=== PATIENT | female | born 1980 | race Caucasian/White ===

== ENCOUNTER → 2021-10-18 | Outpatient (CLI) | payer MEDICARE, OTHER ==
[2021-10-18 13:12] VITALS: BP 148/96; PULSE 74; RESP 18; TEMP 98.5
--- NOTE | 2021-10-18 13:40 | P.GSHP ---
History of Present Illness H&P Date: 10/18/21 Chief Complaint: abnormal mammogram left breast Cecily is a 41 year old white female seen in consultation for Dr. Patton regarding a left nipple inversion. Is been inverted for approximately 4 months. It is not painful. She has not noted any abnormal nipple discharge. She had a left breast ultrasound performed on 08-21-21 this revealed an ill-defined hypoechoic area in the retroareolar region. She subsequently had a bilateral mammogram performed on this again revealed in the subareolar area some asymmetric increased density. Additionally a 5 mm lesion was noted in the right breast. She subsequently underwent a right breast ultrasound and was told that a repeat right breast mammogram should be done in 6 months. The patient is not complaining of any lumps masses or nodules of concern in either breast. She does not have any abnormal nipple discharge. She is not complaining of any pain in her breast. She is not had any recent trauma or infection in her breast. This was her first mammogram. caffiene: occasional nicotine: none chocolate: occasional hormones: none Family History: cousin: lung smoker Hormonal History: menarche: 13 , breast fed: no, age at first :25 periods regular BCP: none Surgical Hstory: tubal right finger Medical History: asthma hypothyroid Social History: nicotine: none alcohol: none drugs: none - Constitutional Constitutional: Denies chills, Denies fever - EENT Eyes: denies blurred vision, denies pain Ears: deny: decreased hearing, tinnitus Ears, nose, mouth and throat: Denies headache, Denies sore throat - Breasts Breasts: bilateral: as per HPI - Cardiovascular Cardiovascular: Denies chest pain, Denies shortness of breath - Respiratory Respiratory: Denies cough, Denies 7 - Gastrointestinal Gastrointestinal: Denies abdominal pain, Denies diarrhea, Denies nausea, Denies vomiting - Genitourinary (Female) Genitourinary: Denies dysuria, Denies hematuria - Menstruation Menstruation: Reports period normal - Musculoskeletal Musculoskeletal: Denies myalgias - Integumentary Integumentary: Denies pruritus, Denies rash - Neurological Neurological: Denies numbness, Denies weakness - Psychiatric Psychiatric: Denies anxiety, Denies depression - Endocrine Endocrine: Denies fatigue, Denies weight change - Hematologic/Lymphatic Comment: none - Allergic/Immunologic Allergic/Immunologic: Reports as per HPI Past Medical History Past Medical History: Asthma History of Any Multi-Drug Resistant Organisms: None Reported Past Surgical History: Section, Tubal Ligation Additional Past Surgical History / Comment(s): RIGHT PINKY FINGER A CHILD Past Anesthesia/Blood Transfusion Reactions: No Reported Reaction Past Psychological History: No Psychological Hx Reported Smoking Status: Never smoker Past Alcohol Use History: None Reported Past Drug Use History: None Reported Medications and Allergies Home Medications Medication Instructions Recorded Confirmed Type Albuterol Sulfate [Ventolin HFA] 1 - 2 puff INHALATION Q6H PRN #1 03/28/14 10/18/21 Rx inhaler predniSONE 10 mg PO DIRECTED #24 tab 03/28/14 Rx Levothyroxine Sodium [Synthroid] 50 mcg PO DAILY 10/18/21 10/18/21 History Allergies Allergy/AdvReac Type Severity Reaction Status Date / Time No Known Allergies Allergy Verified 10/18/21 13:03 Surgical - Exam Vital Signs Temp Pulse Resp BP Pulse Ox 98.5 F 74 18 148/96 100 10/18/21 13:06 10/18/21 13:06 10/18/21 13:06 10/18/21 13:06 10/18/21 13:06 BMI 46.2 - General no distress - Eyes normal ocular movement - ENT no hearing loss - Neck trachea midline - Respiratory normal respiratory effort, clear to auscultation - Cardiovascular Rhythm: regular Heart Sounds: normal: S1, S2 - Abdomen Abdomen: soft - Integumentary normal turgor - Neurologic no disoriented, no combative - Musculoskeletal normal gait - Psychiatric oriented to time, oriented to person, oriented to place, speech is normal, memory intact Breast Exam: BRA: extra large inspection: Left nipple is inverted. Easily able to be examined and it protrudes as the other side, asymmetry of the breast left breast being larger than the right breast; bilateral grade 3 ptosis Palpation: Right breast: Multiple positional exam fibrocystic changes no dominant masses or nodules of concern Right axilla: No adenopathy of concern Left breast multiple positional exam fibrocystic changes nipple was initially inverted with examination protrudes No dominant masses or nodules of concern Left axilla: No adenopathy of concern Results Mammogram and ultrasound of both breasts reviewed Assessment and Plan Assessment: Impression: Intermittent inversion of the left nipple on examination no discrete masses noted/nothing discrete which was on interventional biopsy at this time Ultrasound report and films reviewed of both breast Plan: Bilateral ultrasound in 6 months with physician exam at that time If patient notes anything palpable in her breasts she should call us sooner CC: Dr. Patton
== END ==
LOC: WWCWWP 12:30
PROVIDERS: ATTEND Surgery
DX: N64.89 Other specified disorders of breast (principal); J45.909 Unspecified asthma, uncomplicated; E03.9 Hypothyroidism, unspecified

== ENCOUNTER → 2021-12-17 | Outpatient (CLI) | payer MEDICARE, OTHER ==
--- NOTE | 2021-12-18 07:57 | MM ---
Reason for exam: clinical finding. Last mammogram was performed 3 months ago. Physical Findings: A clinical breast exam by your physician is recommended on an annual basis and results should be correlated with mammographic findings. MG Diagnostic Mammo LT w CAD CC and MLO view(s) were taken of the left breast. Prior study comparison: September 04, 2021, mammogram, performed at [facility]. There are scattered fibroglandular densities. Focal asymmetry left subareolar breast, nipple inverted. Results were given to the patient verbally at the time of the exam. ASSESSMENT: Incomplete: need additional imaging evaluation, BI-RAD 0 RECOMMENDATION: Ultrasound of the left breast.
--- NOTE | 2021-12-18 07:58 | USB ---
Reason for exam: additional evaluation requested from abnormal screening. Physical Findings: A clinical breast exam by your physician is recommended on an annual basis and results should be correlated with mammographic findings. US Breast Limited LT Left limited breast ultrasound including focal area of concern, retroareolar and axilla demonstrates a 1.2 x 0.8 x 0.3cm mixed fluid collection within nipple, consider micro abscess. Therapy and short term follow up. Results were given to the patient verbally at the time of the exam. ASSESSMENT: Probably benign, BI-RAD 3 RECOMMENDATION: Ultrasound of the left breast in 3 months. Manage patient on a clinical basis.
== END | disposition home or self-care (01) ==
LOC: RADMAMWWP 14:03
PROVIDERS: ATTEND Surgery
DX: R92.8 Other abnormal and inconclusive findings on diagnostic imaging of breast (principal)
CPT/HCPCS: 77065

== ENCOUNTER → 2022-03-21 | Outpatient (CLI) | payer MEDICARE, OTHER ==
--- NOTE | 2022-03-21 13:25 | USB ---
Reason for Exam: Follow-up at short interval from prior study. Patient History: Menarche at age 13. First Full-Term at age 22. Risk Values: Fatemeh 5 year model risk: 0.5%. NCI Lifetime model risk: 9.9%. Prior Study Comparison: 09/04/2021 Screening Mammogram, [facility]. 12/17/2021 Left Diagnostic Mammogram, [facility]. Findings: The axilla of the left breast and the retroareolar of the left breast were scanned. Targeted subareolar and axillary scanning of the left breast. Redemonstrated hilar/subareolar thickening within the ovoid 1.9 x 1.7 x 0.4 cm hypoechoic area just deep to the nipple. This was previously measured at 1.2 x 0.8 x 0.3 cm. Possible inflammatory etiology. Biopsy recommended to exclude a papilloma or other lesion. Rounded and mildly thickened axillary lymph nodes, all nonenlarged, show cortical thickening up to 4 mm. These are probably reactive and should be reassessed at short interval follow-up. Overall Assessment: Suspicious, BI-RAD 4 Management: Ultrasound Core Biopsy of the left breast. The exam is discussed with Dr. Felix Larsen. Ultrasound-guided core needle biopsy is being recommended. The mildly thickened left axillary lymph nodes are probably reactive and can be reassessed on a 3 month follow-up ultrasound. Electronically signed and approved by: Gladys Knight M.D. Radiologist
== END | disposition home or self-care (01) ==
LOC: RADUSWWP 09:13
PROVIDERS: ATTEND Surgery
DX: R92.8 Other abnormal and inconclusive findings on diagnostic imaging of breast (principal)

== ENCOUNTER → 2022-03-21 | Outpatient (CLI) | payer MEDICARE, OTHER ==
[2022-03-21 10:10] VITALS: BP 138/89; PULSE 110; RESP 17; TEMP 98.9
--- NOTE | 2022-03-21 12:07 | P.PN ---
Subjective Progress Note Date: 03/21/22 Principal diagnosis: left nipple inversion Cecily is a 42 year old white female seen in consultation for Dr. Patton regarding a left nipple inversion. Is been inverted for several months. It is not painful. She has not noted any abnormal nipple discharge. She had a left breast ultrasound performed on 08-21-21 this revealed an ill-defined hypoechoic area in the retroareolar region. She subsequently had a bilateral mammogram performed on this again revealed in the subareolar area some asymmetric increased density. Additionally a 5 mm lesion was noted in the right breast. 09-12-21 She subsequently underwent a right breast ultrasound and was told that a repeat right breast mammogram should be done in 6 months. Repeat left breast mammogram and ultrasound was performed on . On the repeat ultrasound there were scattered fibroglandular densities. Focal asymmetry left subareolar breast nipple inverted. The patient underwent a left breast ultrasound which revealed a 1.2 x 0.8 cm fluid collection within the nipple consider microabscess. Ultrasound of the left breast in 3 months was recommended. The patient is not complaining of any lumps masses or nodules of concern in either breast. She does not have any abnormal nipple discharge. She is not complaining of any pain in her breast. She is not had any recent trauma or infection in her breast. Nipple remains everted. I have reviewed the films personally with Dr. Knight from radiology there is a area of nodularity behind the left nipple and he has recommended a core biopsy. Additionally a right breast ultrasound is recommended which has not yet been done. caffiene: occasional nicotine: none chocolate: occasional hormones: none Family History: cousin: lung smoker Hormonal History: menarche: 13 , breast fed: no, age at first :25 periods regular BCP: none Surgical Hstory: tubal right finger Medical History: asthma hypothyroid Social History: nicotine: none alcohol: none drugs: none - Constitutional Constitutional: Denies chills, Denies fever - EENT Eyes: denies blurred vision, denies pain Ears: deny: decreased hearing, tinnitus Ears, nose, mouth and throat: Denies headache, Denies sore throat - Breasts Breasts: bilateral: as per HPI - Cardiovascular Cardiovascular: Denies chest pain, Denies shortness of breath - Respiratory Respiratory: Denies cough, Denies 7 - Gastrointestinal Gastrointestinal: Denies abdominal pain, Denies diarrhea, Denies nausea, Denies vomiting - Genitourinary (Female) Genitourinary: Denies dysuria, Denies hematuria - Menstruation Menstruation: Reports period normal - Musculoskeletal Musculoskeletal: Denies myalgias - Integumentary Integumentary: Denies pruritus, Denies rash - Neurological Neurological: Denies numbness, Denies weakness - Psychiatric Psychiatric: Denies anxiety, Denies depression - Endocrine Endocrine: Denies fatigue, Denies weight change - Hematologic/Lymphatic Comment: none - Allergic/Immunologic Allergic/Immunologic: Reports as per HPI Past Medical History Past Medical History: Asthma History of Any Multi-Drug Resistant Organisms: None Reported Past Surgical History: Section, Tubal Ligation Additional Past Surgical History / Comment(s): RIGHT PINKY FINGER A CHILD Past Anesthesia/Blood Transfusion Reactions: No Reported Reaction Past Psychological History: No Psychological Hx Reported Smoking Status: Never smoker Past Alcohol Use History: None Reported Past Drug Use History: None Reported Objective - Vital Signs Vital signs: Vital Signs Temp 98.9 F 03/21/22 10:09 Pulse 110 H 03/21/22 10:09 Resp 17 03/21/22 10:09 BP 138/89 03/21/22 10:09 Pulse Ox 98 03/21/22 10:09 FiO2 Intake & Output 03/20/22 03/21/22 03/21/22 18:59 06:59 18:59 Weight 124.284 kg - Exam BMI: 47 - Constitutional General appearance: Present: cooperative - EENT Eyes: Present: EOMI ENT: Present: hearing grossly normal - Neck Neck: Present: normal ROM - Respiratory Respiratory: bilateral: CTA - Cardiovascular Rhythm: regular Heart sounds: normal: S1, S2 - Integumentary Integumentary Comment(s): fungal infection under each breast - Musculoskeletal Musculoskeletal: Present: gait normal - Psychiatric Psychiatric: Present: A&O x's 3, appropriate affect, intact judgment & insight - Additional findings Additional findings: Breast Exam: BRA: 44DDD Inspection: Bilateral grade 3 ptosis, left breast nipple inversion Palpation: Right breast: Multi-positional exam fibrocystic changes no dominant masses or nodules of concern Right axilla: No adenopathy of concern Left breast nipple inversion slight fullness posterior to the nipple areolar complex no dominant masses or nodules of concern on multi-positional exam, fibrocystic changes Left axilla: No adenopathy of concern Assessment and Plan Assessment: Impression/Plan: Asthma Hypothyroid BMI 47 Inversion left nipple areolar complex Patient due for right breast ultrasound Patient to do for left breast core biopsy of area of concern behind the nipple areolar complex (after reviewing discussion with Dr. Knight) Patient to follow up after core biopsy Nystatin for fungal infection under both breast CC: Dr. Hart
== END | disposition home or self-care (01) ==
LOC: WWCWWP 09:15
PROVIDERS: ATTEND Surgery
DX: Z53.9 Procedure and treatment not carried out, unspecified reason (principal)

== ENCOUNTER → 2022-04-01 | Outpatient (CLI) | payer MEDICARE, OTHER ==
--- NOTE | 2022-04-01 08:59 | USB ---
Patient History: Menarche at age 13. First Full-Term at age 22. Risk Values: Fatemeh 5 year model risk: 0.5%. NCI Lifetime model risk: 9.9%. Prior Study Comparison: 09/04/2021 Screening Mammogram, [facility]. 12/17/2021 Left Diagnostic Mammogram, [facility]. Findings: The whole breast of the right breast, the axilla of the right breast and the retroareolar of the right breast were scanned. No solid or cystic masses are identified. No abnormality to account for reported abnormality within the right breast by ultrasound 09/12/2021. There is a 0.9 cm right axillary lymph node 11 cm from the nipple. This has a somewhat prominent cortex of 0.32 cm. Normal up to 0.3 cm. Short-term follow-up is recommended. Overall Assessment: Probably benign, BI-RAD 3 Management: Diagnostic Mammogram of both breasts in 6 months. Diagnostic Breast Ultrasound of the right breast in 6 months. A clinical breast exam by your physician is recommended on an annual basis and results should be correlated with mammographic findings. Electronically signed and approved by: Ag Nicolas D.O. Radiologis
== END | disposition home or self-care (01) ==
LOC: RADUSWWP 08:04
PROVIDERS: ATTEND Surgery
DX: R92.8 Other abnormal and inconclusive findings on diagnostic imaging of breast (principal); R59.0 Localized enlarged lymph nodes

== ENCOUNTER → 2022-04-03 | Day surgery (SDC) | payer MEDICARE, OTHER ==
--- NOTE | 2022-04-08 13:44 | USB ---
Risk Values: Fatemeh 5 year model risk: 0.5%. NCI Lifetime model risk: 9.9%. Pathology Description: Location: central. Marker Left Behind. Needle Type: Celero Cores: 2 Skin Nicks: 1 Gauge: 12 The procedure of ultrasound guided core biopsy was explained to the patient. Benefits, alternatives, and risks were discussed. Specific discussion regarding hemorrhage was performed. An informed consent was then obtained. A timeout was performed. The patient was placed in supine positioning for imaging and for the procedure. The overlying skin was prepped and draped in usual sterile fashion. Lidocaine was used as anesthetic into the skin and subcutaneous tissue up to area of concern in the left breast. An attempt to perform aspiration with an 18-gauge needle was unsuccessful. Under ultrasound guidance, a Celero device was used to obtain 2 core samples. A biopsy clip was left in lesion. Hydromark core marker was placed. The patient tolerated the procedure well without any immediate complication. The patient was kept in the radiology department for short stay after the procedure and then discharged home in stable condition. Postprocedure mammogram: The patient was transferred to mammography for physician ordered post procedure mammogram for clip placement verification. Impression: Successful ultrasound guided core biopsy of area of concern in the left breast, full pathology results to follow. Recommendations: 1. Recommendations are pending pathology results. Pathology Results: Result: Benign. LEFT BREAST NIPPLE, CORE BIOPSY: Acute and chronic mastitis with granulation tissue, fibrous scar and focal abscess formation. Negative for diagnostic malignancy (see note). Tissue Density: Left: There are scattered fibroglandular densities. Overall Assessment: Benign Assessment: MG diagnostic mammo LT wo CAD. - Left: Benign, BI-RAD 2. Management: Diagnostic Breast Ultrasound of the left breast in 6 months. Electronically signed and approved by: Ag Nicolas D.O. Radiologis
== END ==
LOC: RADUSWWP 07:38
PROVIDERS: ATTEND Surgery
DX: R92.8 Other abnormal and inconclusive findings on diagnostic imaging of breast (principal); N61.22 Granulomatous mastitis, left breast; N61.1 Abscess of the breast and nipple; L90.5 Scar conditions and fibrosis of skin
CPT/HCPCS: 88305; 77065; 19083; A4648

== ENCOUNTER → 2023-10-06 | Outpatient (CLI) | payer MEDICARE, OTHER ==
--- NOTE | 2023-10-07 22:19 | MM ---
Reason for Exam: Screening (asymptomatic). Last screening mammogram was performed 12 month(s) ago. Patient History: Menarche at age 13. First Full-Term at age 22. 04/03/2022, Benign US biopsy breast VAD LT on the left side. Risk Values: Fatemeh 5 year model risk: 0.9%. NCI Lifetime model risk: 11.9%. Prior Study Comparison: 12/17/2021 Left Diagnostic Mammogram, [facility]. 04/03/2022 Left MG diagnostic mammo LT wo CAD., [facility]. 10/04/2022 Bilateral MG 3D diag mammo w/cad PRATIK, [facility]. Tissue Density: There are scattered fibroglandular densities. Findings: Analyzed By CAD. Benign bilateral oil cyst calcifications. There is no suspicious group of microcalcifications or new suspicious mass in either breast. Overall Assessment: Benign, BI-RAD 2 Management: Screening Mammogram of both breasts in 1 year. . Patient should continue monthly self-breast exams. A clinical breast exam by your physician is recommended on an annual basis. This exam should not preclude additional follow-up of suspicious palpable abnormalities. Note on Fatemeh scores and lifetime risk: 1. A Fatemeh score greater than 3% is considered moderate risk. If this is the case, consider specialist referral to assess eligibility for a risk reducing agent. 2. If overall lifetime risk for the development of breast cancer is 20% or higher, the patient may qualify for future screening with alternating mammogram and breast MRI. Electronically signed and approved by: Gladys Knight M.D. Radiologist
== END | disposition home or self-care (01) ==
LOC: RADMAMWWP 09:19
PROVIDERS: ATTEND Surgery
DX: Z12.31 Encounter for screening mammogram for malignant neoplasm of breast (principal)
CPT/HCPCS: 77067

== ENCOUNTER → 2023-10-09 | Outpatient (CLI) | payer MEDICARE, OTHER ==
[2023-10-09 14:00] VITALS: BP 150/90; PULSE 115; RESP 15; TEMP 98.7
--- NOTE | 2023-10-09 14:08 | P.PN ---
Subjective Progress Note Date: 10/09/23 10-09-23 Principal diagnosis: fibrocystic breast changes left nipple inversion Daisy is a 42-year-old white female seen initially in consultation for Dr. Hart regarding left nipple inversion. It had been inverted for several months. She underwent a bilateral mammogram in which revealed in the subareolar area some asymmetric increased density. She underwent a core biopsy of that region on which revealed revealed acute and chronic mastitis with granulation tissue, fibrous scar, and focal abscess formation. Was negative for malignancy. At that time she was also recommended to undergo a right breast ultrasound. She underwent a bilateral diagnostic mammogram on as well as a bilateral breast ultrasound on the same date. The reports were benign BIRADS 2 with repeat bilateral mammogram in 1 year. The patient continues to have inversion of the nipple on the left. She is not complaining of any pain in her breast at this time. She is not complaining of any lumps masses or nodules of concern in either breast. Patient is not complaining of any fever or chills. The patient had a bilateral mammogram on 10-06-23 which was BIRAD 2. Her left nipple remains inverted and there is no change. She is not complaining of any new lumps masses or nodules of concern in either breast. caffiene: occasional nicotine: none chocolate: occasional hormones: none Family History: cousin: lung smoker Hormonal History: menarche: 13 , breast fed: no, age at first :25 periods regular BCP: none Surgical Hstory: tubal right finger Medical History: asthma hypothyroid Social History: nicotine: none alcohol: none drugs: none - Constitutional Constitutional: Denies chills, Denies fever - EENT Eyes: denies blurred vision, denies pain Ears: deny: decreased hearing, tinnitus Ears, nose, mouth and throat: Denies headache, Denies sore throat - Breasts Breasts: bilateral: as per HPI - Cardiovascular Cardiovascular: Denies chest pain, Denies shortness of breath - Respiratory Respiratory: Denies cough - Gastrointestinal Gastrointestinal: Denies abdominal pain, Denies diarrhea, Denies nausea, Denies vomiting - Genitourinary (Female) Genitourinary: Denies dysuria, Denies hematuria - Menstruation Menstruation: Reports period normal - Musculoskeletal Musculoskeletal: Denies myalgias - Integumentary Integumentary: Denies pruritus, Denies rash - Neurological Neurological: Denies numbness, Denies weakness - Psychiatric Psychiatric: Denies anxiety, Denies depression - Endocrine Endocrine: Denies fatigue, Denies weight change - Hematologic/Lymphatic Comment: none - Allergic/Immunologic Allergic/Immunologic: Reports as per HPI Past Medical History Past Medical History: Asthma History of Any Multi-Drug Resistant Organisms: None Reported Past Surgical History: Section, Tubal Ligation Additional Past Surgical History / Comment(s): RIGHT PINKY FINGER A CHILD Past Anesthesia/Blood Transfusion Reactions: No Reported Reaction Past Psychological History: No Psychological Hx Reported Smoking Status: Never smoker Past Alcohol Use History: None Reported Past Drug Use History: None Reported Objective - Vital Signs Vital signs: Vital Signs Temp 98.7 F 10/09/23 13:36 Pulse 115 H 10/09/23 13:36 Resp 15 10/09/23 13:36 BP 150/90 10/09/23 13:36 Pulse Ox 97 10/09/23 13:36 FiO2 Intake & Output 10/08/23 10/09/23 10/09/23 18:59 06:59 18:59 Weight 111.13 kg - Constitutional General appearance: Present: cooperative - EENT Eyes: Present: EOMI ENT: Present: hearing grossly normal - Neck Neck: Present: normal ROM - Respiratory Respiratory: bilateral: CTA - Cardiovascular Heart sounds: normal: S1, S2 - Integumentary Integumentary: Present: normal turgor - Musculoskeletal Musculoskeletal: Present: gait normal - Psychiatric Psychiatric: Present: A&O x's 3, appropriate affect, intact judgment & insight - Additional findings Additional findings: Breast Exam: BRA: 44DDD Inspection: Bilateral grade 3 ptosis, left breast nipple inversion Palpation: Right breast: Multi-positional exam fibrocystic changes no dominant masses or nodules of concern Right axilla: No adenopathy of concern Left breast nipple inversion slight fullness posterior to the nipple areolar complex resolved, healed pustule medial areolar region not draining no dominant masses or nodules of concern on multi-positional exam, fibrocystic changes Left axilla: No adenopathy of concern Assessment and Plan Assessment: Impression: Asthma Hypothyroid BMI 43.8 Chronically inverted left nipple Periareolar pustule which appears to have healed at this time Bilateral mammogram and ultrasound 212-24 benign BIRADS 2 Plan: Repeat bilateral mammogram 1 year Patient to follow up sooner any questions or concerns CC: Dr. Hart
== END ==
LOC: WWCWWP 13:23
PROVIDERS: ATTEND Surgery
DX: N60.11 Diffuse cystic mastopathy of right breast (principal); N60.12 Diffuse cystic mastopathy of left breast; N64.59 Other signs and symptoms in breast; N61.0 Mastitis without abscess; J45.909 Unspecified asthma, uncomplicated; E03.9 Hypothyroidism, unspecified; L08.9 Local infection of the skin and subcutaneous tissue, unspecified; Z98.51 Tubal ligation status; Z79.890 Hormone replacement therapy; Z79.899 Other long term (current) drug therapy

== ENCOUNTER → 2024-11-16 | Outpatient (CLI) | payer MEDICARE, OTHER ==
--- NOTE | 2024-11-16 09:04 | MM ---
Reason for Exam: Screening (asymptomatic). Last mammogram was performed 1 year(s) and 1 month(s) ago. Patient History: Menarche at age 13. First Full-Term at age 22. 04/03/2022, Benign US biopsy breast VAD LT on the left side. Last menstrual period: 11/11/2024 Risk Values: Fatemeh 5 year model risk: 1.0%. NCI Lifetime model risk: 11.8%. Prior Study Comparison: 04/03/2022 Left MG diagnostic mammo LT wo CAD., [facility]. 10/04/2022 Bilateral MG 3D diag mammo w/cad [facility], [facility]. 10/06/2023 Bilateral MG screening mammo w CAD, [facility]. Tissue Density: There are scattered areas of fibroglandular density. Findings: Analyzed By CAD. There is no suspicious group of microcalcifications or new suspicious mass in either breast. Benign-appearing calcifications. Overall Assessment: Benign, BI-RAD 2 Management: Screening Mammogram of both breasts in 1 year. . Patient should continue monthly self-breast exams. A clinical breast exam by your physician is recommended on an annual basis. This exam should not preclude additional follow-up of suspicious palpable abnormalities. Note on Fatemeh scores and lifetime risk: 1. A Fatemeh score greater than 3% is considered moderate risk. If this is the case, consider specialist referral to assess eligibility for a risk reducing agent. 2. If overall lifetime risk for the development of breast cancer is 20% or higher, the patient may qualify for future screening with alternating mammogram and breast MRI. [facility], , 11/16/2024 9:02 AM. Electronically signed and approved by: Elmer Molina M.D. Radiologis
== END | disposition home or self-care (01) ==
LOC: RADMAMWWP 08:35
PROVIDERS: ATTEND Surgery
DX: Z12.31 Encounter for screening mammogram for malignant neoplasm of breast (principal); R92.323 Mammographic fibroglandular density, bilateral breasts
CPT/HCPCS: 77063; 77067

== ENCOUNTER → 2024-12-02 | Outpatient (CLI) | payer MEDICARE, OTHER ==
[2024-12-02 12:51] VITALS: BP 154/90; PULSE 101; RESP 16; TEMP 97.9
--- NOTE | 2024-12-02 13:07 | P.PN ---
Subjective Progress Note Date: 12/02/24 Principal diagnosis: fibrocystic breast changes/chronic abscess left periareolar region with chronically inverted left nipple 12-02-24 Principal diagnosis: fibrocystic breast changes left nipple inversion Daisy is a 44-year-old white female seen initially in consultation for Dr. Hart regarding left nipple inversion. It had been inverted for several months. She underwent a bilateral mammogram in which revealed in the subareolar area some asymmetric increased density. She underwent a core biopsy of that region on which revealed revealed acute and chronic mastitis with granulation tissue, fibrous scar, and focal abscess formation. Was negative for malignancy. At that time she was also recommended to undergo a right breast ultrasound. She underwent a bilateral diagnostic mammogram on as well as a bilateral breast ultrasound on the same date. The reports were benign BIRADS 2 with repeat bilateral mammogram in 1 year. The patient continues to have inversion of the nipple on the left. She is not complaining of any pain in her breast at this time. She is not complaining of any lumps masses or nodules of concern in either breast. Patient is not complaining of any fever or chills. The patient had a bilateral mammogram on 11-16-24 which was BIRAD 2. Her left nipple remains inverted and there is no change. She is not complaining of any new lumps masses or nodules of concern in either breast. Purulent drainage from the left nipple area as well as recurrence of the periareolar abscess on the left side with fullness contiguous with the nipple site caffiene: occasional nicotine: none chocolate: occasional hormones: none Family History: cousin: lung smoker Hormonal History: menarche: 13 , breast fed: no, age at first :25 periods regular BCP: none Surgical Hstory: tubal right finger Medical History: asthma hypothyroid Social History: nicotine: none alcohol: none drugs: none - Constitutional Constitutional: Denies chills, Denies fever - EENT Eyes: denies blurred vision, denies pain Ears: deny: decreased hearing, tinnitus Ears, nose, mouth and throat: Denies headache, Denies sore throat - Breasts Breasts: bilateral: as per HPI - Cardiovascular Cardiovascular: Denies chest pain, Denies shortness of breath - Respiratory Respiratory: Denies cough - Gastrointestinal Gastrointestinal: Denies abdominal pain, Denies diarrhea, Denies nausea, Denies vomiting - Genitourinary (Female) Genitourinary: Denies dysuria, Denies hematuria - Menstruation Menstruation: Reports period normal - Musculoskeletal Musculoskeletal: Denies myalgias - Integumentary Integumentary: Denies pruritus, Denies rash - Neurological Neurological: Denies numbness, Denies weakness - Psychiatric Psychiatric: Denies anxiety, Denies depression - Endocrine Endocrine: Denies fatigue, Denies weight change - Hematologic/Lymphatic Comment: none - Allergic/Immunologic Allergic/Immunologic: Reports as per HPI Past Medical History Past Medical History: Asthma History of Any Multi-Drug Resistant Organisms: None Reported Past Surgical History: Section, Tubal Ligation Additional Past Surgical History / Comment(s): RIGHT PINKY FINGER A CHILD Past Anesthesia/Blood Transfusion Reactions: No Reported Reaction Past Psychological History: No Psychological Hx Reported Smoking Status: Never smoker Past Alcohol Use History: None Reported Past Drug Use History: None Reported Objective - Vital Signs Vital signs: Vital Signs Temp 97.9 F 12/02/24 12:49 Pulse 101 H 12/02/24 12:49 Resp 16 12/02/24 12:49 BP 154/90 12/02/24 12:49 Pulse Ox 98 12/02/24 12:49 FiO2 Intake & Output 12/01/24 12/02/24 12/02/24 18:59 06:59 18:59 Weight 101.151 kg - Constitutional General appearance: Present: cooperative - EENT Eyes: Present: EOMI ENT: Present: hearing grossly normal - Neck Neck: Present: normal ROM - Respiratory Respiratory: bilateral: CTA - Cardiovascular Rhythm: regular Heart sounds: normal: S1, S2 - Integumentary Integumentary: Present: normal turgor - Musculoskeletal Musculoskeletal: Present: gait normal - Psychiatric Psychiatric: Present: A&O x's 3, appropriate affect, intact judgment & insight - Additional findings Additional findings: Breast Exam: BRA: 44DDD Inspection: Bilateral grade 3 ptosis, left breast nipple inversion Palpation: Right breast: Multi-positional exam fibrocystic changes no dominant masses or nodules of concern Right axilla: No adenopathy of concern Left breast nipple inversion slight fullness posterior to the nipple areolar complex , pustule medial areolar region palpation at results and drainage from the nipple itself, there is some fullness from the area of the pustule posterior to the nipple areolar complex to the nipple no dominant masses or nodules of concern in the breast on multi-positional exam, fibrocystic changes Left axilla: No adenopathy of concern Assessment and Plan Assessment: Impression: Asthma Hypothyroid BMI 39.5 Chronically inverted left nipple/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 Hart Consent: I have discussed the risks, benefits and alternative therapies for the above-mentioned procedure and for both sedation/analgesia as well as necessary blood product administration, if indicated, as they pertain to this patient. The patient has indicated understanding and acceptance of the risks and procedures discussed. And benefits of the procedure were discussed with the patient. Risk include but are not limited to bleeding, infection, reaction to the anesthetic. The area will most likely be left open to granulate from the inside out. CC: Dr. Hart
== END ==
LOC: WWCWWP 12:26
PROVIDERS: ATTEND Surgery
DX: Z12.31 Encounter for screening mammogram for malignant neoplasm of breast (principal); E03.9 Hypothyroidism, unspecified; J45.909 Unspecified asthma, uncomplicated; L08.9 Local infection of the skin and subcutaneous tissue, unspecified; N60.11 Diffuse cystic mastopathy of right breast; N60.12 Diffuse cystic mastopathy of left breast; Z68.39 Body mass index [BMI] 39.0-39.9, adult

== ENCOUNTER 2024-12-07 10:44 | Day surgery (SDC) | payer MEDICARE, OTHER ==
[2024-12-03 16:05] VITALS: BMI 39.8
[~2024-12-07 10:44] MED LIST: HYDROmorphone 0.5 MG/0.5 ML SYRINGE IVP PRN; LIDOCAINE 1% (10MG/ML) FOR IV START INTRADERMA PRN; MIDAZOLAM 2 MG/2 ML VIAL IV PRN; Pre Op ABX Message 1 EACH MISC MISCELLANE ONE; fentaNYL (PF) 50 MCG/ML 2 ML AMP IVP PRN
[2024-12-07] MEDS: LACTATED RINGERS 1,000 ML IV SCH (11:32)
[2024-12-07] MEDS: IV FLUID CONTINUATION 1,000 ML IV ONE (11:32)
[2024-12-07] MEDS: ONDANSETRON 4 MG/2 ML VIAL IVP ONE (11:40)
[2024-12-07] MEDS: ACETAMINOPHEN TAB 500 MG TAB PO PRN (11:40)
[2024-12-07] MEDS: HEPARIN SODIUM,PORCINE 5,000 UNIT/ML 1 ML VIAL SQ PRN (11:41)
[2024-12-07] MEDS: DEXAMETHASONE SOD PHOSPHATE 4 MG/ML 1 ML VIAL IV ONE (11:41)
[2024-12-07] MEDS ORDERED: fentaNYL (PF) 50 MCG/ML 2 ML AMP ONE (13:40)
[2024-12-07] MEDS ORDERED: LIDOCAINE 1% INJ 10MG/ML (20 ML MDV) ONE (13:40)
[2024-12-07] MEDS ORDERED: PROPOFOL 10 MG/ML 20 ML VIAL IV ONE (13:40)
[2024-12-07] MEDS: SODIUM CHLORIDE 0.9% 100 ML with ceFAZolin 2,000 MG IV ONE (13:45)
--- NOTE | 2024-12-07 14:22 | P.BCAON ---
Date of Procedure: 12/07/24 Preoperative Diagnosis: Chronic abscess/fistula left nipple areolar complex Postoperative Diagnosis: Same Procedure(s) Performed: Unroofing fistula, debridement abscess cavity Anesthesia: JUNIA Surgeon: Laura Hines Estimated Blood Loss (ml): 5 IV fluids (ml): 500 Pathology: other (Tissue left chronic abscess cavity) Condition: stable Disposition: same day Indications for Procedure: Chronic abscess/fistula left nipple areolar complex Operative Findings: Chronic abscess/fistula left nipple areolar complex Description of Procedure: The patient was brought to the operative suite and following induction of anesthesia the left breast was prepped and draped in a sterile fashion. Utilizing a mosquito clamp it was placed through the outer aspect of the tract and retracted to the nipple. The distance was approximately 1-1/2 cm. The tissue over this was opened and there was a chronic cavity with some drainage at that site. The cavity was approximately 2 x 2 cm. This was debrided. It was very vascular and it was necessary to use the electrocautery to maintain hemostasis. The wound was well irrigated. After assuring that hemostasis was attained the wound was packed open. This was done with a moist Kerlix. The patient tolerated the procedure in stable condition. All instrument and sponge counts were correct at the end of the case.
[2024-12-07 14:34] VITALS: TEMP 97.4
[2024-12-07 16:17] VITALS: BP 145/90; PULSE 91; RESP 14
== END 2024-12-07 16:27 | disposition home or self-care (01) ==
LOC: OR 10:44
PROVIDERS: ATTEND Surgery
DX: N60.12 Diffuse cystic mastopathy of left breast (principal); N61.1 Abscess of the breast and nipple; N64.0 Fissure and fistula of nipple; N64.59 Other signs and symptoms in breast; E03.9 Hypothyroidism, unspecified; J45.909 Unspecified asthma, uncomplicated; Z79.890 Hormone replacement therapy; Z79.899 Other long term (current) drug therapy
CPT/HCPCS: 10060; 84703; 87070; 87205; 87075; J1644; J1100; J2405; J0690; 81025

== ENCOUNTER → 2024-12-09 | Outpatient (CLI) | payer MEDICARE, OTHER ==
[2024-12-09 12:00] VITALS: BP 137/101; PULSE 133; RESP 19; TEMP 98
--- NOTE | 2024-12-09 12:10 | P.BCPO ---
Progress Note - Text Progress Note Date: 12/09/24 Daisy is status post debridement of a fistula tract in her left breast. She is doing well postoperatively. Her pathology is pending. Examination: Lungs: Clear Heart: Regular rate and rhythm Wound: 3 cm x 3 cm x 1 cm, clean granulation tissue Impression: Fistulous tract opened healing at this time Plan: Pack wound The wound should be packed with moist Kerlix daily Patient is to continue to wear her bra Patient will follow-up next week
== END ==
LOC: WWCWWP 11:41
PROVIDERS: ATTEND Surgery
DX: Z98.890 Other specified postprocedural states (principal)

== ENCOUNTER → 2024-12-17 | Outpatient (CLI) | payer MEDICARE, OTHER ==
[2024-12-17 08:29] VITALS: BP 145/88; PULSE 101; RESP 16; TEMP 97.9
--- NOTE | 2024-12-17 08:52 | P.BCPO ---
Progress Note - Text Progress Note Date: 12/17/24 12/17/24 Daisy is status post debridement of a fistula tract in her left breast. She is doing well postoperatively. Her pathology is acute and chronic mastitis with granulation tissue and focal abscess formation Examination: Lungs: Clear Heart: Regular rate and rhythm Wound: 12-09-24 3 cm x 3 cm x 1 cm, clean granulation tissue 12-17-24 wound 3 cm by 2 cm by 1 cm clean granulation tissue Impression: Fistulous tract opened healing at this time Plan: Pack wound The wound should be packed with moist Kerlix daily Patient is to continue to wear her bra Patient will follow-up 2 weeks Additional CC's: Elias Hart
== END ==
LOC: WWCWWP 08:12
PROVIDERS: ATTEND Surgery
DX: N61.1 Abscess of the breast and nipple (principal); Z98.890 Other specified postprocedural states

== ENCOUNTER → 2024-12-30 | Outpatient (CLI) | payer MEDICARE, OTHER ==
--- NOTE | 2024-12-30 13:52 | P.PN ---
Subjective Progress Note Date: 12/30/24 12-30-24 Daisy is status post debridement of a fistula tract in her left breast. She is doing well postoperatively. Her pathology is acute and chronic mastitis with granulation tissue and focal abscess formation Examination: Lungs: Clear Heart: Regular rate and rhythm Wound: 12-09-24 3 cm x 3 cm x 1 cm, clean granulation tissue 12-17-24 wound 3 cm by 2 cm by 1 cm clean granulation tissue 12-30-24 wound 3 by 1 1/2 by 1/1/2 cm clean granulation tissue Impression: Fistulous tract opened healing at this time Plan: Pack wound The wound should be packed with moist Kerlix daily Patient is to continue to wear her bra Patient will follow-up 4 weeks Additional CC's: Eilas Hart
[2024-12-30 14:00] VITALS: BP 141/94; PULSE 115; RESP 17; TEMP 97.9
== END ==
LOC: WWCWWP 13:35
PROVIDERS: ATTEND Surgery
DX: T81.83XA Persistent postprocedural fistula, initial encounter (principal)